=== PATIENT | female | born 1945 | race Caucasian/White ===

== ENCOUNTER 2019-07-06 20:13 | Emergency (ER) | payer MEDICARE, BC ==
--- NOTE | 2019-07-06 20:41 | EDM.PDOC ---
ED HPI GENERAL MEDICAL PROBLEM - General Chief Complaint: Upper Extremity Injury/Pain Stated Complaint: LEFT SHOULDER PAIN, FALL Time Seen by Provider: 07/06/19 20:25 Source of Information: Reports: Patient, RN History Limitations: Reports: No Limitations - History of Present Illness INITIAL COMMENTS - FREE TEXT/NARRATIVE: 74 yo female fell onto her L shoulder about 2 hrs ago when she tripped on a pipe. She took acetaminophen at home and is now feeling better. Does have some L shoulder pain persisting. Onset: Today Onset Date: 07/06/19 Onset Time: 18:30 Duration: Hour(s): (2), Improving Location: Reports: Upper Extremity, Left Quality: Reports: Ache Severity: Mild Improves with: Reports: Medication (acetaminophen) Context: Reports: Trauma Associated Symptoms: Reports: No Other Symptoms Treatments BARN HAND: Reports: Cold Therapy Left Shoulder Pain Score (Numeric/FACES): 4 - Related Data Allergies Allergy/AdvReac Type Severity Reaction Status Date / Time No Known Allergies Allergy Verified 07/06/19 20:23 Home Meds: Home Meds Etanercept [Enbrel] 50 ml IM ASDIRECTED 07/06/19 [History] Past Medical History 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 Denies: Arm Pain, Hand Pain Skin: Reports: No Symptoms ED EXAM, GENERAL - Physical Exam Exam: See Below Exam Limited By: No Limitations General Appearance: Alert, WD/WN, No Apparent Distress Extremities: Normal Inspection, Normal Range of Motion, No Pedal Edema, Other ( No bony pain. Some posterior deltoid tenderness. No AC joint pain. ). No: Non- Tender, Joint Swelling, Limited Range of Motion, Redness Neurological: Alert, Oriented, CN II-XII Intact, Normal Cognition, No Motor/ Sensory Deficits Psychiatric: Normal Affect, Normal Mood Skin Exam: Warm, Dry, Intact, Normal Color, No Rash Course - Vital Signs Last Recorded V/S: Last Vital Signs Temp 36.2 C 07/06/19 20:30 Pulse 80 07/06/19 20:30 Resp 16 07/06/19 20:30 BP 176/92 H 07/06/19 20:30 Pulse Ox 99 07/06/19 20:30 Departure - Departure Time of Disposition: 20:40 Disposition: Home, Self-Care 01 Condition: Good Clinical Impression: Contusion of left deltoid region Qualifiers: Encounter type: initial encounter Qualified Code(s): S40.012A - Contusion of left shoulder, initial encounter - Discharge Information *PRESCRIPTION DRUG MONITORING PROGRAM REVIEWED*: No *COPY OF PRESCRIPTION DRUG MONITORING REPORT IN PATIENT LOWELL: No Instructions: Contusion, [id number] Referrals: Dot Ly DO [Primary Care Provider] - Additional Instructions: Acetaminophen as needed for pain relief. Rest your shoulder and recheck if not better in a week. Sepsis Event Note - Evaluation Sepsis Screening Result: No Definite Risk - Focused Exam Vital Signs: Vital Signs Temp Pulse Resp BP Pulse Ox 07/06/19 20:30 36.2 C 80 16 176/92 H 99 Date Exam was Performed: 07/06/19 Time Exam was Performed: 20:37
== END 2019-07-06 20:46 | disposition home or self-care (01) ==
LOC: JP.ED 20:13
DX: S40.012A Contusion of left shoulder, initial encounter (principal); W01.0XXA Fall on same level from slipping, tripping and stumbling without subsequent striking against object, initial encounter; Y92.009 Unspecified place in unspecified non-institutional (private) residence as the place of occurrence of the external cause
CPT/HCPCS: 99283

== ENCOUNTER 2022-11-19 06:10 | Emergency (ER) | payer MEDICARE, BC ==
[2022-11-19] MEDS ORDERED: Sodium Chloride 0.9% 10 ML Syringe FLUSH PRN (06:17)
[2022-11-19 06:28] LABS: BASOPHILS ABSOLUTE AUTO 0.04 K/uL (0.00-0.10); BASOPHILS PERCENT AUTO 0.2 % (0.1-1.3); EOSINOPHILS ABSOLUTE AUTO 0.14 K/uL (0.00-0.40); EOSINOPHILS PERCENT AUTO 0.7 % (0.0-5.4); HEMATOCRIT 35.7 % (34.3-46.0); HEMOGLOBIN 12.8 g/dL (11.2-15.5); IMMATURE GRAN ABSOLUTE AUTO 0.25 K/uL (0.00-0.23); IMMATURE GRAN PERCENT AUTO 1.2 % (0.0-0.7); LYMPHOCYTES ABSOLUTE AUTO 0.37 K/uL (0.8-3.3); LYMPHOCYTES PERCENT AUTO 1.8 % (11.4-47.7); MEAN CORPUSCULAR HEMOGLOBIN 31.4 pg (31.6-35.5); MEAN CORPUSCULAR HGB CONC 35.9 g/dL (31.6-35.5); MEAN CORPUSCULAR VOLUME 87.7 fL (81.4-99.0); MONOCYTES ABSOLUTE AUTO 1.23 K/uL (0.20-0.90); MONOCYTES PERCENT AUTO 6.1 % (3.3-12.6); NEUTROPHILS ABSOLUTE AUTO 18.15 K/uL (1.0-7.6); PLATELET COUNT,PLT 214 K/uL (130-375); RED BLOOD CELL COUNT 4.07 M/uL (3.77-5.24); WHITE BLOOD CELL COUNT,WBC 20.2 K/uL (3.2-11.0)
[2022-11-19 06:47] LABS: INR 1.2; PROTHROMBIN TIME 11.9 sec (9.2-10.6); PTT,PARTIAL THROMBOPLSTIN TIME 31.8 sec (21.8-27.3)
[2022-11-19 06:48] LABS: ALANINE AMINOTRANSFERASE,ALT 26 U/L (12-78); ALBUMIN 2.6 g/dL (3.4-5.0); ALKALINE PHOSPHATASE 113 U/L (46-116); ASPARTATE AMNIOTRANSFERASE,AST 19 U/L (15-37); BILIRUBIN TOTAL 0.8 mg/dL (0.2-1.0); BLOOD UREA NITROGEN,BUN 12 mg/dL (7-18); CALCIUM 8.4 mg/dL (8.5-10.1); CARBON DIOXIDE,CO2 22 mmol/L (21-32); CHLORIDE,CL 87 mmol/L (100-108); CREATININE 0.7 mg/dL (0.6-1.0); EST CRCL DRUG DOSING (CG) 64.01 mL/min; ESTIMATED GFR 90 mL/min (>60); GLUCOSE RANDOM 105 mg/dL (74-106); POTASSIUM,K 3.8 mmol/L (3.6-5.2); PROTEIN TOTAL,TP 6.6 g/dL (6.4-8.2); SODIUM,NA 121 mmol/L (140-148)
[2022-11-19 07:04] LABS: A/G RATIO 0.7 (1.2-2.2); ANION GAP 15.8 mmol/L (5.0-14.0); C-REACTIVE PROTEIN 25.19 mg/dL (0.0-0.3)
[2022-11-19 07:29] LABS: CORONAVIRUS COVID-19 NAA NEGATIVE (NEGATIVE); INFLUENZA A NAA NEGATIVE (NEGATIVE); INFLUENZA B NAA NEGATIVE (NEGATIVE); RESPIRATORY SYNCYTIAL VIR NAA NEGATIVE (NEGATIVE)
[2022-11-19] MEDS ORDERED: cefTRIAXone 2 GM in Sodium Chloride 0.9% 50 ML IV ONE (07:46)
[2022-11-19 09:31] LABS: APPEARANCE CSF CLEAR (CLEAR); COLOR,CSF COLORLESS (COLORLESS); TUBE NUMBER,CSF 1; TUBE VOLUME,CSF 0.5 mls; WBC,CSF 91 /ul (0-5)
[2022-11-19 09:32] LABS: MONONUCLEAR, CSF 26 % (54-100); POLYMORPHONUCLEAR, CSF 74 % (0-7); RBC,CSF 6 /ul (0-0)
[2022-11-19] MEDS ORDERED: Acetaminophen 1,000 MG in Premix Bag 1 BAG IV PRN (09:42)
[2022-11-19] MEDS ORDERED: Sodium Chloride 0.9% 1,000 ML IV SCH (09:45)
[2022-11-19] MEDS ORDERED: Ondansetron 4 MG/2 ML SDV IVPUSH PRN (09:57)
[2022-11-19] MEDS ORDERED: Sodium Chloride 0.9% 10 ML SDV FLUSH ONE (10:07)
[2022-11-19] MEDS ORDERED: Iopamidol 755 Mg/ML 100 ML Bottle IV SCH (10:15)
[2022-11-19] MEDS ORDERED: Sodium Chloride 0.9% 100 ML IV SCH (10:15)
[2022-11-19 10:26] LABS: LYME AB IgG Negative (Negative); LYME AB IgM Negative (Negative)
[2022-11-21 14:25] LABS: WEST NILE VIRUS AB, IGG, SER 0.08 IV (<=1.29)
[2022-11-23 23:15] LABS: WEST NILE VIRUS AB IGG CSF 0.06 IV (<=1.29)
== END 2022-11-20 00:05 ==
LOC: JP.ED 06:10
DX: G03.9 Meningitis, unspecified (principal); H02.402 Unspecified ptosis of left eyelid; H49.02 Third [oculomotor] nerve palsy, left eye; E87.1 Hypo-osmolality and hyponatremia; D84.9 Immunodeficiency, unspecified; M06.9 Rheumatoid arthritis, unspecified; Z20.822 Contact with and (suspected) exposure to COVID-19
CPT/HCPCS: 0241U; 36415; 62270; 70450; 70496; 70498; 80053; 82945; 84157; 85025; 85610; 85730; 86140; 86618; 86788; 86789; 87070; 87102; 87205; 87252; 89050; 96361; 96365; 96366; 96367; 96375; 99285; J0131; J0696; J3370; J3490; J7030; J7050; Q9967